=== PATIENT | female | born 1955 | race Asian ===

== ENCOUNTER 2017-01-10 02:28 | Emergency (ER) | payer MEDICARE, OTHER ==
[~2017-01-10] VITALS: Ht 160 cm; Wt 61.7 kg
--- NOTE | 2017-01-10 02:38 | NUR ---
TO BED 6 A 64 YO FEMALE BIBRA WITH C/O ANTERIOR, UPPER ABDL SHARP PAIN AT 7/10 THAT STARTED LAST NIGHT AT 2100, TENDER WITH PALPATION. PATIENT IS AAO4, AFEBRILE, VSS. DENIES N/V AT THIS TIME. INITIATED COMFORT MEASURES. AWAITING FOR ER MD XIAO.
[2017-01-10] MEDS ORDERED: IV NS 0.9% 1,000 ML ONE (02:39)
[2017-01-10] MEDS ORDERED: HYDROMORPHONE 1 MG/1 ML DISP.SYRIN ONE (02:39)
[2017-01-10] MEDS ORDERED: IV SET PRIMARY 1 EA INFUS.SET MC ONE (02:39)
[2017-01-10] MEDS ORDERED: ONDANSETRON HCL/PF 4 MG/2 ML VIAL ONE (02:39)
--- NOTE | 2017-01-10 02:59 | NUR ---
STARTED A SALINE LOCK ON THE LEFT HAND G20, BLOOD DRAWN AND SENT TO LAB.
[2017-01-10] MEDS ORDERED: ONDANSETRON HCL/PF 4 MG/2 ML VIAL IVP ONE (03:00)
[2017-01-10] MEDS ORDERED: HYDROMORPHONE INJ 2 MG/ML DISP.SYRIN IV ONE (03:00)
[2017-01-10] MEDS ORDERED: IV NS 0.9% 1,000 ML BAG IV ONE (03:00)
[2017-01-10 03:01] LABS: BASOPHILS % (AUTO) 0.5 % (0.0-2.0); EOSINOPHILS # (AUTO) 0.3 /CMM (0.0-0.7); EOSINOPHILS % (AUTO) 2.3 % (0.0-6.0); HEMATOCRIT 35 % (33-45); HEMOGLOBIN 11.8 g/dL (11.5-14.8); LYMPHOCYTES # (AUTO) 1.1 /CMM (0.8-4.8); LYMPHOCYTES % (AUTO) 9.9 % (20.0-44.0); MEAN CORPUSCULAR HEMOGLOBIN 30 PG (26.0-33.0); MEAN CORPUSCULAR HGB CONC 34 g/dl (31.0-36.0); MEAN CORPUSCULAR VOLUME 89 fL (82-100); MONOCYTES # (AUTO) 0.6 /CMM (0.1-1.30); MONOCYTES % (AUTO) 5.1 % (2.0-12.0); NEUTROPHILS # (AUTO) 8.9 /CMM (1.8-8.9); NEUTROPHILS % (AUTO) 82.2 % (43.0-81.0); PLATELET COUNT (AUTO) 291 /CMM (150-450); RED BLOOD CELL COUNT(AUTO) 3.87 MIL/uL (4.0-5.2); WHITE BLOOD COUNT (AUTO) 10.8 K/uL (4.3-11.0)
[2017-01-10 03:10] LABS: CALCIUM, SERUM 9.9 mg/dL (8.5-10.1); POTASSIUM 4.1 mmol/L (3.5-5.1)
[2017-01-10 03:16] LABS: ALBUMIN 3.8 g/dL (3.4-5.0); BILIRUBIN,DIRECT 0.1 mg/dL (0.0-0.2); BILIRUBIN,TOTAL 0.3 mg/dL (0.2-1.0); TOTAL PROTEIN, SERUM 7.9 g/dL (6.4-8.2)
[2017-01-10 03:18] LABS: TROPONIN I 0.039 ng/mL (0.00-0.056)
[2017-01-10 03:21] LABS: INR 0.9 (0.87-1.13); PROTHROMBIN TIME 9.6 SECS (9.5-12.7)
--- NOTE | 2017-01-10 03:40 | NUR ---
BACK FROM CT.
--- NOTE | 2017-01-10 04:37 | NUR ---
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
--- NOTE | 2017-01-10 05:10 | NUR ---
MICHAEL DOC PAGED [facility]
[2017-01-10 05:17] VITALS: BP 161/77
--- NOTE | 2017-01-10 05:17 | NUR ---
REPORT GIVEN TO MICHAEL ROJAS FOR [facility].
[2017-01-10] MEDS ORDERED: diphenhydrAMINE HCL 50 MG/ML VIAL ONE (05:54)
[2017-01-10] MEDS ORDERED: METOCLOPRAMIDE HCL 10 MG/2 ML VIAL ONE (05:54)
[2017-01-10] MEDS ORDERED: METOCLOPRAMIDE HCL 10 MG/2 ML VIAL IV ONE (06:00)
[2017-01-10] MEDS ORDERED: diphenhydrAMINE HCL 50 MG/ML VIAL IV ONE (06:00)
--- NOTE | 2017-01-10 06:03 | NUR ---
Report given to paramedics for als transport. vss stable. medicated as ordered. No new complaints at this time.
== END 2017-01-10 06:06 | disposition short-term general hospital (02) ==
LOC: EDBD 02:30 → ER 02:30
DX: K85.90 Acute pancreatitis without necrosis or infection, unspecified (principal); N28.9 Disorder of kidney and ureter, unspecified; R94.31 Abnormal electrocardiogram [ECG] [EKG]
CPT/HCPCS: 36415; 71010; 74176; 76705; 80048; 80076; 83690; 84484; 85025; 85730; 93005; 96361; 96374; 96375; 99285; A4606; J1170; J1200; J2405; J2765; J7030; Z7610